=== PATIENT | male | born 1950 | race Caucasian/White ===

== ENCOUNTER → 2017-11-26 | Outpatient (CLI) | payer BC ==
[~2017-11-26] MED LIST: GLCSUNK; MULT-506 PO
--- NOTE | 2017-11-26 10:57 | DIAGNOSTIC IMAGING REPORT ---
CT LUNG SCREENING, LOW DOSE WITH COMPUTER-AIDED DETECTION (CAD) CLINICAL HISTORY: Smoking history. COMPARISON STUDY: No previous studies for comparison. CT DOSE: 105.33 mGy.cm TECHNIQUE: Low-dose helical CT was acquired without intravenous contrast from lung apices to bases and reconstructed at 2.5 mm every 2 mm. CAD was utilized for this study. A dose lowering technique was utilized adhering to the principles of ALARA. FINDINGS: Mild emphysema. No pleural effusions. No pneumothorax. Faint groundglass density seen within the lungs posteriorly, right greater than left. This favors mild dependent change. Subtle groundglass subpleural nodularity within the left upper lobe. This may be due to chronic interstitial change. The central airways are patent. No fractures within the visualized osseous structures. Slightly dense substernal 12 mm nodule. 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 Otherwise, no significant mediastinal or hilar lymphadenopathy. Mild calcified plaque at the aortic arch and within the coronary arteries. The heart is top normal in size. The visualized liver, spleen, and adrenal glands are unremarkable. Nodule 1 Category: 2 Nodule 1 Status: Baseline Nodule 1 Description: Solid Nodule 1 Lesion ID: 2 Nodule 1 Slice Number: 91 Nodule 1 Volume (mm3): 95 Nodule 1 Major Gallina mm: 7.7 Nodule 1 Minor Gallina mm: 3.2 Nodule 2 Category: 2 Nodule 2 Status: Baseline Nodule 2 Description: Solid Nodule 2 Lesion ID: 1 Nodule 2 Slice Number: 120 Nodule 2 Volume (mm3): 32 Nodule 2 Major Gallina mm: 3.9 Nodule 2 Minor Gallina mm: 3.2 IMPRESSION: 1. A total of 2 subcentimeter nodules with recommendations detailed below. 2. Mild emphysema. 3. Mild calcified plaque within the coronary arteries. 4. Slightly hyperdense 12 mm substernal nodule. 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 CAD FINDINGS: Overall Lung RADS Category: 2 Lung RADS Management Recommendation: Continue annual lung cancer screening. Lung RADS Follow Up Date: 2018-11-26 Lung RADS Nodule ID: 2 Electronically signed by: Roberto Scott M.D. 11/26/2017 10:55 AM Dictated Date/Time: 11/26/2017 10:44 AM
== END | disposition home or self-care (01) ==
LOC: C.CTS 09:21
PROVIDERS: ATTEND Family Medicine
DX: Z87.891 Personal history of nicotine dependence (principal)

== ENCOUNTER → 2017-11-28 | Outpatient (CLI) | payer BC ==
--- NOTE | 2017-11-28 08:44 | DIAGNOSTIC IMAGING REPORT ---
ULTRASOUND EXAM AAA SCREEN CLINICAL HISTORY: 67 years-old Male presenting with NICOTINE DEPENDENCE. TECHNIQUE: Real-time grayscale and color and spectral Doppler ultrasound imaging of the abdominal aorta and iliac arteries was performed. COMPARISON: None. FINDINGS: Proximal aorta: Atherosclerosis. Transverse dimension 2.3 x 2.4 cm. Mid aorta: Atherosclerosis. Transverse dimension 3.1 x 3.1 cm. Distal aorta: Atherosclerosis. Transverse dimension 2.0 x 2.1 cm. Right iliac artery: Atherosclerosis. Transverse dimension 1.0 cm. Left iliac artery: Atherosclerosis. Transverse dimension 0.8 cm. IMPRESSION: 1. Atherosclerosis with a 3.1 cm mid abdominal aortic aneurysm. Further evaluation with CTA of the abdomen and pelvis to be considered as clinically indicated. The report will be called/faxed according to standard departmental protocol. Electronically signed by: Milton Osullivan M.D. 11/28/2017 8:43 AM Dictated Date/Time: 11/28/2017 8:42 AM
== END | disposition home or self-care (01) ==
LOC: C.ULTR 08:07
PROVIDERS: ATTEND Family Medicine
DX: F17.200 Nicotine dependence, unspecified, uncomplicated (principal); I71.4 Abdominal aortic aneurysm, without rupture

== ENCOUNTER → 2018-01-07 | Outpatient (CLI) | payer BC | END | disposition home or self-care (01) | LOC: C.PATHSPEC 17:13 | PROVIDERS: ATTEND Physician Assistant | DX: L57.0 Actinic keratosis (principal) ==

== ENCOUNTER 2022-10-24 07:14 | Inpatient (IN) ==
--- NOTE | 2022-10-10 08:51 | PAT Medication Instructions ---
Medication Instructions Date of Service October 10, 2022 Home Medications atorvastatin 20 mg tablet 20 mg PO HS bupropion HCl 100 mg tablet 100 mg PO BID lisinopril 20 mg tablet 20 mg PO HS melatonin 5 mg tablet 5 mg PO HS PRN Sleep aspirin 81 mg capsule 81 mg PO QAM ASK your prescriber and surgeon aspirin 81 mg capsule 81 mg PO QAM Take morning of surgery With a small sip of water, OTHERWISE NOTHING TO EAT OR DRINK AFTER MIDNIGHT: bupropion HCl 100 mg tablet 100 mg PO BID Take evening before surgery atorvastatin 20 mg tablet 20 mg PO HS bupropion HCl 100 mg tablet 100 mg PO BID lisinopril 20 mg tablet 20 mg PO HS melatonin 5 mg tablet 5 mg PO HS PRN Sleep (if needed) Other Notes If you have any questions please call us at [phone] or [phone] or [phone] or [phone]
--- NOTE | 2022-10-12 12:25 | Anesthesiology Consultation ---
Date of Service October 12, 2022 Assessment & Plan (1) Encounter for pre-operative examination: Chart Review Chart Review: Acceptable Risk for Surgery and Patient seen in Pre Admission Testing Per PAT appt on 10/12/22, patient denies any recent travel or large group activities. Pt is vaccinated for Covid. Will leave to surgeon's discretion if preop Covid testing needed. Educated on importance of using Covid precautions one week prior to surgery Teaching & Discussion Pre-Anesthesia Teaching/Discussion Notes: Instructed NPO after midnight before surgery,except medications with 15 cc of water. Medication instructions provided according to the PAT guidelines. History Surgery Operation Date: 10/24/22 11:20 Proposed Procedures p Percutaneous Endovascular Abdominal Aortic Aneurysm Repair - Branden Francois MD Height/Weight Height: 5 ft 10 in Weight: 88.1 kg Allergies Allergy/AdvReac Type Severity Reaction Status Date / Time No Known Allergies Allergy Mild Verified 10/09/22 15:17 Medications Home Medications Medication Instructions Recorded Confirmed Last Taken atorvastatin 20 mg tablet 20 mg PO HS 05/20/20 10/09/22 07/18/22 bupropion HCl 100 mg tablet 100 mg PO BID 05/20/20 10/09/22 07/18/22 lisinopril 20 mg tablet 20 mg PO HS 05/20/20 10/09/22 07/18/22 melatonin 5 mg tablet 5 mg PO HS PRN Sleep 07/14/22 10/09/22 07/18/22 aspirin 81 mg capsule 81 mg PO QAM 10/09/22 10/09/22 Unknown Past Medical History Medical History Abdominal aneurysm 4.9 cm x 4.7 cm per 10/02/22 aortic iliac duplex Anxiety Depression GERD (gastroesophageal reflux disease) infrequent, managed with OTC TUMS Hyperlipidemia Hypertension controlled, stable per pt Osteoarthritis Right knee pain Sciatica Right LE Exercise / Class Metabolic Activity II 4-5 Yardwork/Stairs/Walk up hill (one flight of stiars - no chest pain or SOB ) Past Family History Family History Grandmother Family history of diabetes mellitus Mother Family history of malignant neoplasm of skin Past Surgical History Surgical History History of appendectomy History of cataract surgery bilateral History of inguinal hernia repair 03/07/18 LMA#5. History of knee surgery right History of rotator cuff surgery right History of tonsillectomy History of tooth extraction Past Anesthesia History No Hx of Anesthesia Complications and No Family Hx of Anesthesia Complications History of PONV No Hx of PONV and No Hx of Motion Sickness Social History Smoking Status: Former smoker tobacco type: cigarettes Do You Dip or Chew Tobacco: No Smoking End Date: 2019 Hx Alcohol Use: No Hx Substance Use: No substance use type: does not use Review of Systems Snoring - no hx of sleep study Patient denies chest pain, shortness of breath, dyspnea on exertion, cough, wheezing, palpitations. No hx of seizures, stroke, VA. No hx of blood clots or blood transfusions Physical Exam Vital Signs VITALS BP 146/90 (manually- usually well controlled) P 74 TEMP 97.6 SP02 96% RESP 16 Constitutional no acute distress ENMT Mouth: no TMJ clicking Thyromental Distance: > or= 3.5 Finger Breadths (4.0) Mallampati Class: II Permanent bridge to bottom front and side teeth Caps to teeth Neck neck extension not limited Respiratory normal respiratory effort; no respiratory distress Auscultation: lungs clear to auscultation bilaterally; no wheezes Cardiovascular Rate/Rhythm: regular rate and regular rhythm Heart Sounds: no murmur Vessels: no carotid bruit Musculoskeletal Spine: no pain with cervical ROM Extremities: extremities normal to inspection Psychiatric Orientation: alert Lab Results Anesthesia Preop Results Results Anesthesia Widget: WBC 6.92 K/ul (4.8-10.8) 10/12/22 Hgb 15.5 g/dl (14.0-18.0) 10/12/22 Hct 44.4 % (42.0-52.0) 10/12/22 Plt 252 K/uL (130-400) 10/12/22 Na 134 mmol/L (136-145) L 10/12/22 K 4.7 mmol/L (3.5-5.1) 10/12/22 Cl 101 mmol/L (98-107) 10/12/22 CO2 29 mmol/L (21-32) 10/12/22 BUN 12 mg/dl (6-23) 10/12/22 Creat 0.92 mg/dl (0.6-1.4) 10/12/22 Glucose Level 113 mg/dl (70-99(Fasting)) H 10/12/22 PT 10.9 Seconds (9.0-12.0) 10/12/22 PTT 27.2 Seconds (21.0-31.0) 10/12/22 INR 1.0 (0.9-1.1) 10/12/22 Blood Type A Positive 10/12/22 Antibody Screen NEGATIVE 10/12/22 Testing Electrocardiogram Date: 10/12/22 Findings: + NSR @ (69bpm ) RBBB When compared to EKG from Aug 23, 2022- no significant change per cardio Chest X-Ray Date: 10/12/22 FINDINGS: PA and lateral chest radiographs are compared to study dated 02/10/2021 and correlated with chest CT dated 03/22/2022. The cardiomediastinal silhouette is unremarkable noting atherosclerotic calcification of the thoracic aorta. Mild emphysema and chronic interstitial thickening is similar to previous. There is bibasilar scarring/atelectasis. No airspace consolidation or pleural effusion is identified. There is no pneumothorax. A nipple shadow projects over the left lung base. The skeletal structures are osteopenic. The bony thorax appears intact. IMPRESSION: Mild emphysematous change with no active disease in the chest. Other Testing Chest CT 03/22/22= No suspicious pulmonary nodules COVID-19 Risk Screen Screening Information COVID-19 Screen Date: 10/12/22 Exposure 21 Days Family/Household +COVID Last 21 Days: No Exposure 10 Days Any COVID Exposure Last 10 Days: No Symptoms Last 10 Days Experienced COVID Sx Last 10 Days: No + COVID 0-90 Days COVID + in Last 0-90 Days: No Risk Plan COVID Risk Plan: No Risk Identified Patient Education COVID Preop Screening Education Complete: Yes
[~2022-10-24 07:14] MED LIST changes: -GLCSUNK; +LACTATED RINGER'S 1,000 ML IV SCH; -MULT-506 PO; +ceFAZolin 2000MG 2,000 MG/15 ML SYR IV SCH
--- NOTE | 2022-10-24 07:34 | History & Physical Report ---
Date of Service October 24, 2022 History of Present Illness Primary Care Provider: Justin Kaur DO Chief Complaint rm#[id number], here for f/u AAA, recently found to have mobile thrombus on duplex. Scheduled for TKA on Sunday with Dr. Brown. On asa 81 mg po bid. No claudication, some right hip discomfort that has been long standing per patient. Quit smoking this month History of Present Illness I had the pleasure of seeing Mohinder today for follow-up. As you know he is a 72-year-old gentleman who has abdominal aortic aneurysm which we have been following. He recently had an ultrasound which showed the aneurysm to have grown from 4.6 to 4.9 cm in size. It also showed a mobile flap within the aneurysm sac. Review of Systems 10 systems were reviewed and all were negative except for the HPI. Physical Exam Vitals & Measurements HR: 73 (Monitored) BP: 122/72 SpO2: 98% Input and Output - Last 24 hours (Last 8 hours) No I/O Data Found: On exam the patient is awake alert and oriented x3. His blood pressure is 124/74 in the left and 122/72 on the right. His radials and carotids are +2 bilaterally. His lungs were clear. In heart had a regular rate and rhythm. Abdominal exam shows mild dilatation of the abdominal aorta. Femorals are +2 bilaterally. Pedal pulses are +2 bilaterally. Neurologic exam is grossly intact. Assessment/Plan 1. Abdominal aortic aneurysm (AAA) >39 mm diameter At this point being that his aneurysm has enlarged 4.9 and he has a mobile flap which is worrisome for distal embolization we recommended a endovascular repair if he meets criteria by CT angio. We have ordered a CT angiogram. We will keep you informed as to his progress. He is going to put off his knee surgery till after this problem is resolved. Thank you very much for letting us participate in the care of this patient. Sincerely, Kym Francois MD Problem List/Past Medical History Ongoing Abdominal aortic aneurysm (AAA) >39 mm diameter Cessation of tobacco use in previous 12 months High blood cholesterol IFG (impaired fasting glucose) Tobacco user Weight monitoring Historical Post-viral cough syndrome Tick bite of forearm Procedure/Surgical History Cataract of right eye (08/16/2022) Low dose CT of chest without contrast (03/22/2022) CT of chest (02/10/2021) CT of lungs (02/10/2020) CT of lungs (11/19/2018) Lung cancer screening (11/19/2018) HERNIA REPAIR W/MESH (03/07/2018) Ultrasound exam AAA screen (11/28/2017) CT of lungs (11/26/2017) Surgery Surgery Medications Inpatient No active inpatient medications Home Aspir 81 oral delayed release tablet, 81 mg= 1 tab, PO, bid atorvastatin 20 mg oral tablet, See Instructions buPROPion 100 mg/12 hours (SR) oral tablet, extended release, See Instructions lisinopril 20 mg oral tablet, See Instructions Melatonin vitamin E Allergies NKA Social History Smoking Status Former Smoker, quit in last 30 days Tobacco - High Risk Current every day smoker, Cigarettes - Comments: Smokes 1 ppd for 45-50 years Family History Diabetes mellitus: Mother and Father. High blood pressure: Mother and Father. Parkinsons: Mother and Father. Immunizations Vaccine Date Status influenza virus vaccine, inactivated 08/17/2021 Given influenza virus vaccine, inactivated 06/16/2019 Given pneumococcal 23-valent vaccine 06/16/2019 Given pneumococcal 13-valent vaccine 06/28/2018 Given influenza virus vaccine, inactivated 06/28/2018 Given influenza virus vaccine, inactivated 09/29/2017 Recorded tetanus/diphtheria/pertuss, acel (Tdap) 09/14/2014 Recorded Comments : 2017-10-02: Historical information-source unspecified Signature Line Electronic Signature on File Branden Francois MD Author Signature Dt/Tm: 10/09/2022 02:33 PM Steel Crane Operator Wily Watson [facility] [place], [address] [place] [address] EJS Result Type: .Outpt Ltr Date of Service: October 09, 2022 14:32 EST Authorization Status: Final Subject: Consult Note Author or Import Date: MD Francois Eugene J on October 09, 2022 14:33 EST Verified By: MD Francois Eugene J on October 09, 2022 14:33 EST Encounter info: [id number], [facility], Clinic, 10/09/2022 - 10/09/2022 Allergies Allergy/AdvReac Type Severity Reaction Status Date / Time No Known Allergies Allergy Mild Verified 10/24/22 07:27 Home Medications Medication Instructions Recorded Confirmed Type atorvastatin 20 mg tablet 20 mg PO HS 05/20/20 10/24/22 History bupropion HCl 100 mg tablet 100 mg PO BID 05/20/20 10/24/22 History lisinopril 20 mg tablet 20 mg PO HS 05/20/20 10/24/22 History melatonin 5 mg tablet 5 mg PO HS PRN Sleep 07/14/22 10/24/22 History aspirin 81 mg capsule 81 mg PO QAM 10/09/22 10/24/22 History Past Med/Surg History Medical History Abdominal aneurysm 4.9 cm x 4.7 cm per 10/02/22 aortic iliac duplex Anxiety Depression GERD (gastroesophageal reflux disease) infrequent, managed with OTC TUMS Hyperlipidemia Hypertension controlled, stable per pt Osteoarthritis Right knee pain Sciatica Right LE Surgical History History of appendectomy History of cataract surgery bilateral History of inguinal hernia repair 03/07/18 LMA#5. History of knee surgery right History of rotator cuff surgery right History of tonsillectomy History of tooth extraction Family History Grandmother Family history of diabetes mellitus Mother Family history of malignant neoplasm of skin Social History Smoking Status: Former smoker Smoking End Date: 2019; Second Hand Exposure: No; Do You Dip or Chew Tobacco: No; Tobacco Cessation Education Requested by Patient: No Hx Alcohol Use: No Hx Substance Use: No Preferred Language: Occitan Communication Ability: Effective Private Advisor Required: No Beliefs That Will Affect Care: None Current Living Situation: Spouse Feels Safe at Home: Yes Safety Concerns: Feels Safe At This Time Assistive Devices: Glasses
--- NOTE | 2022-10-24 07:35 | History & Physical Bridge Note ---
Date of Service October 24, 2022 History & Physical Bridge Note I have examined the patient, reviewed the History & Physical and in the interval since the performance of the History & Physical I have noted the following changes of clinical significance: no changes noted
[2022-10-24] MEDS ORDERED: fentaNYL citrate 100 MCG/2 ML VIAL ONE (08:11)
[2022-10-24] MEDS ORDERED: PROPOFOL IV EMULSION 10 MG/ML 20 ML VIAL IV ONE (08:11)
[2022-10-24] MEDS ORDERED: MIDAZOLAM HCL 1 MG/ML 2ML VIAL ONE (08:11)
[2022-10-24] MEDS ORDERED: LIDOCAINE 2% MPF LOCAL 5 ML VIAL INFIL ONE (08:11)
[2022-10-24] MEDS ORDERED: fentaNYL citrate 100 MCG/2 ML VIAL IV PRN (09:02)
[2022-10-24] MEDS ORDERED: LABETALOL HCL IV 5 MG/ML 20ML IV PRN (09:02)
[2022-10-24] MEDS ORDERED: ATROPINE SULFATE 0.1 MG/ML 10ML SYR IV PRN (09:02)
[2022-10-24] MEDS ORDERED: ONDANSETRON INJ 2 MG/ML 2 ML VIAL IV PRN (09:02)
[2022-10-24] MEDS ORDERED: ONDANSETRON INJ 2 MG/ML 2 ML VIAL ONE (10:02)
[2022-10-24] MEDS ORDERED: ROCURONIUM BROMIDE 10 MG/ML 5 ML VIAL IV ONE (10:02)
[2022-10-24] MEDS ORDERED: DEXAMETHASONE SOD INJ 4 MG/ML VIAL ONE (10:02)
[2022-10-24] MEDS ORDERED: HEPARIN SOD (PORCINE) 1000 UNIT/ML ONE (10:03)
[2022-10-24] MEDS ORDERED: VISIPAQUE IV PRN (10:31)
[2022-10-24] MEDS ORDERED: GLYCOPYRROLATE 0.2 MG/ML VIAL ONE (10:32)
[2022-10-24] MEDS ORDERED: NEOSTIGMINE METHYLSULFATE 1 MG/ML 10ML VIAL ONE (10:32)
--- NOTE | 2022-10-24 10:55 | Procedure Note ---
Angiogram Post Procedure Fluoroscopy Time (minutes): 7.5 Radiation (mGy): 163 Contrast: 90 Post Operative Report Pre & Post Diagnosis Operation Date: 10/24/22 09:15 Pre-Op Diagnosis: Abdominal Aortic Aneurysm Post-Op Diagnosis: Abdominal Aortic Aneurysm I identified the patient and participated in the time-out.: Yes Procedure Operation Date: 10/24/22 09:15 Actual Procedures p Percutaneous Endovascular Aortic Aneurysm Repair, Mechanical Closure of Bilateral Femoral Arteries - Branden Francois MD Surgeon Branden Francois MD Biztalk Consultant none Estimated Blood Loss 30 Findings Consistent with Post-Op Diagnosis Specimens none Anesthesia Type General Complications none Disposition Accompanied Patient To Recovery: No Disposition: Recovery Room Indications This is a 72-year-old male with an enlarging abdominal aortic aneurysm. He was a candidate for endovascular repair. This was discussed with the patient and he agreed to go ahead with this procedure and understood the risks options and benefits. Description of Procedure The patient was brought to the OR and placed in supine position. Patient was intubated and general anesthesia was accomplished. A safety timeout was performed to identify patient's name, date of and the correct procedure. Abdomen and groins were prepped and draped in sterile fashion. Ultrasound guided percutaneous access of the right groin was performed. The right common femoral artery was patent. A percutaneous puncture was made in the right common femoral artery using ultrasound. The depth finder for the Manta device was used to measure the depth of the puncture. It was found to be 3 cm. The depth finder was removed and the 8 Turkmen sheath inserted. We turned our attention to the left side and we similarly accessed the left common femoral artery. The left common femoral artery was patent. Using ultrasound left common femoral artery was punctured. The depth finder was used to measure the depth of the puncture of the left side and also found to be 4 cm from the skin edge. This was removed and 8 Turkmen sheath was inserted. Patient was heparinized with 8000 of IV heparin. Through the right groin, we advanced a soft Glidewire followed by a Kumpe catheter. The wire then was exchanged for a stiff Maki wire. We then cannulated the aorta from the left side using 035 Glidewire and a Kumpe catheter. Once this was placed in the super renal aorta the wire was exchanged to a Maki wire.. We then upsized our access on the right side with a 14 Turkmen dilator and subsequently to 18 Turkmen dry seal sheath. The left groin sheath was then exchanged to a 12 Turkmen dry seal sheath. The sheaths were advanced all the way up in the aortic sac. A marker pig was inserted to the left groin. Aortography was performed. The level of the renal arteries were marked on the screen. This showed patency of both renal arteries and a acceptable neck for deployment of the graft. We advanced the device (Wiggins excluder conformable 36 mm x 14.5 mm x 14 cm) through the right sheath. The shaft of the graft was then deployed. An aortogram was performed. Both renal arteries were visualized just above the top of the deployed graft. Aortogram confirmed good location of the proximal end of the graft. The hooks were then deployed. Cannulation of the gate was then accomplished using an 035 glidewire and a [employer] catheter. The wire spun easily in the neck of the graft. The 035 Glidewire was removed and a Maki wire was reinserted. A marker pigtail was then inserted over the Guzman wire. The 12 Turkmen sheath was then pulled down into the external iliac and an arteriogram was performed of the left iliac system. This identified the origin of the hypogastric and the left side. We then removed the pigtail. We reinserted a 12 Turkmen sheath dilator and advanced the sheath into the gate of the graft. Prior to inserting the contralateral limb we deployed the ipsilateral limb to complete the deployment of the graft. The device was then removed from the right groin. We then inserted an 16mm x 14.5 mm x 12 contralateral limb. The 12 Turkmen sheath was then pulled down to below the level of the contralateral limb. Contralateral limb was then deployed without difficulty. The 18 Turkmen sheath on the right side was then pulled down into the pelvis. Hand-injection was then performed to jagdeep where the bifurcation of the common iliac artery was. We then chose a 16 x 14.5 x 10 contralateral limb to extend the right side limb. The graft was advanced to the 18 Turkmen sheath. It was deployed with the distal end falling just above the iliac bifurcation. The Q50 balloon was then inserted through the left sheath. The proximal attachment site, the gate and the distal attachment site were ballooned with the Q50 balloon. The balloon was then removed. Was inserted through the right side 18 Turkmen sheath and then dilated the overlap of the limbs and the distal attachment site of the right limb. The balloon was then removed. The pigtail was then inserted through the left side to above the renal arteries. A final arteriogram was then performed which showed no evidence of a type I or II endoleak. Graft showed no evidence of narrowing throughout. An 035 Glidewire was then reinserted into the pigtail and the pigtail removed. The 12 Turkmen sheath was then pulled and a 14 Turkmen Manta device was inserted. This was deployed without difficulty. No bleeding was noted after deployment. The right groin sheath was then also pulled. An 18 Turkmen Manta device was inserted and deployed. No evidence of bleeding was seen on the right side either. Sterile dressings were applied to the wounds.The patient left the operation room in satisfactory condition and tolerated the procedure well. All needle and sponge counts were correct at the end of the procedure. I attest to the content of the Intraoperative Record and any orders documented therein. Any exceptions are noted below.
--- NOTE | 2022-10-24 11:09 | Anesthesiology Progress Note ---
Date of Service October 24, 2022 Anesthesia Post Procedure Vital Signs Vital Signs: Temp Pulse Resp BP BP Pulse Ox O2 Del Method 10/24/22 11:00 76 16 146/88 H 100 Oxymask 10/24/22 10:50 36.2 C L 77 16 153/89 H 96 Oxymask 10/24/22 07:28 36.6 C 83 16 151/96 H 138/86 96 Room Air O2 Flow Rate 10/24/22 11:00 5 10/24/22 10:50 5 10/24/22 07:28 Transfer of Care Handoff Completed per policy Notes Mental Status: alert / awake / arousable Patient Amnestic to Procedure: Yes Nausea / Vomiting: adequately controlled Pain: adequately controlled Airway Patency, RR, SpO2: stable & adequate BP & HR: stable & adequate Hydration State: stable & adequate Anesthetic Complications: no major complications apparent
[2022-10-24 11:10] LABS: Hematocrit (blood only) 38.2 % (42.0-52.0); Hemoglobin 13.3 g/dl (14.0-18.0)
[2022-10-24] MEDS ORDERED: D5W AND 1/2NSS 1,000 ML IV SCH (12:00)
[2022-10-24] MEDS ORDERED: MELATONIN 3 MG TAB PO PRN (12:05)
--- NOTE | 2022-10-24 13:03 | Critical Care Consultation ---
Date of Consultation October 24, 2022 Assessment & Plan (1) Abdominal aneurysm: (2) Hyperlipidemia: (3) Hypertension: Plan Impression: 72-year-old male status post endovascular repair of an aortic aneurysm today. He is doing well postoperatively in the ICU. Recommendations: 1. Post P EVAR: Management per vascular surgery. 2. Hypertension: Blood pressure goals per vascular surgery service. He can continue the patient's outpatient lisinopril which she typically takes at night. 3. Hyperlipidemia: Continue the patient's atorvastatin. 4. History of tobacco abuse: No signs of exacerbation. No requirement for supplemental oxygen. Continue pulmonary toilet. Will increase activity as tolerated per vascular surgery. 5. The patient's remaining critical care issues have been well addressed by the vascular surgery service. We will continue to follow during his ICU stay. Feel free to contact us with questions or concerns in the interim. History of Present Illness Attending Physician: Branden Francois MD History of Present Illness Asked by vascular surgery to assist in critical care management of this patient status post PEVAR. History is obtained from discussion with the patient and his at bedside and reviewed electronic medical record. The patient is a 72-year-old male with a history of ongoing tobacco abuse and hypertension. He was found to have an abdominal aneurysm and has been following with vascular surgery with screening ultrasounds. The most recent scan showed a mobile flap as well as slight increase in the size of the aneurysm. He was taken to the OR today for percutaneous endovascular repair of the aneurysm. This was completed without difficulty and the patient's return to the ICU postoperatively with an arterial line in place. He is awake alert and conversant. He denies any significant abdominal pain. He has some slight discomfort at the surgical incision sites. He is not having any neurological complaints. He just ate some lunch and is not having any abdominal pain nausea or vomiting. He is mildly hypertensive. He denies any chest pain palpitations or significant lower extremity edema. No neurological complaints. Allergies Allergy/AdvReac Type Severity Reaction Status Date / Time No Known Allergies Allergy Mild Verified 10/24/22 07:27 Home Medications Medication Instructions Recorded Confirmed Type atorvastatin 20 mg tablet 20 mg PO HS 05/20/20 10/24/22 History bupropion HCl 100 mg tablet 100 mg PO BID 05/20/20 10/24/22 History lisinopril 20 mg tablet 20 mg PO HS 05/20/20 10/24/22 History melatonin 5 mg tablet 5 mg PO HS PRN Sleep 07/14/22 10/24/22 History aspirin 81 mg capsule 81 mg PO QAM 10/09/22 10/24/22 History Patient History Medical History (Updated 10/24/22 @ 13:07 by Rakesh Damon MD) Abdominal aneurysm 4.9 cm x 4.7 cm per 10/02/22 aortic iliac duplex Anxiety Depression GERD (gastroesophageal reflux disease) infrequent, managed with OTC TUMS Hyperlipidemia Hypertension controlled, stable per pt Osteoarthritis Right knee pain Sciatica Right LE Surgical History History of appendectomy History of cataract surgery bilateral History of inguinal hernia repair 03/07/18 LMA#5. 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 Beliefs That Will Affect Care: None Current Living Situation: Spouse Feels Safe at Home: Yes Safety Concerns: Feels Safe At This Time Assistive Devices: Glasses Review of Systems Review of Systems: All systems reviewed & are unremarkable except as noted in Subjective Physical Exam Constitutional: WD/WN, vitals as above Neck: trachea midline, no thyromegaly Respiratory: normal respiratory effort, lungs clear to auscultation Cardiovascular: RRR, no murmur, no edema Gastrointestinal (Abdomen): normal bowel sounds, soft, nontender, no hepatosplenomegaly Musculoskeletal: Extremities: extremities normal to inspection Skin: no rashes, warm and dry Neurologic: Nonfocal exam Lymphatic: no cervical lymphadenopathy Results & Data Results & Data ([facility]) Vital Signs (Past 12 Hours) Vital Signs Temp Pulse Pulse Resp BP BP BP 10/24/22 12:30 85 15 175/95 H 10/24/22 12:15 75 14 166/91 H 10/24/22 12:00 70 19 171/97 H 10/24/22 11:25 73 20 155/58 H 10/24/22 11:20 36.9 C 10/24/22 11:10 36.4 C L 72 16 140/81 10/24/22 11:00 76 16 146/88 H 10/24/22 10:50 36.2 C L 77 16 153/89 H 10/24/22 07:28 36.6 C 83 16 151/96 H 138/86 Pulse Ox O2 Del Method O2 Flow Rate 10/24/22 12:30 96 Room Air 10/24/22 12:15 96 Room Air 10/24/22 12:00 96 Room Air 10/24/22 11:25 96 Room Air 10/24/22 11:20 10/24/22 11:10 98 Room Air 10/24/22 11:00 100 Oxymask 5 10/24/22 10:50 96 Oxymask 5 10/24/22 07:28 96 Room Air Critical Care Results & Data Vital Signs (Past 12 Hours) Vital Signs Temp Pulse Pulse Resp BP BP BP 10/24/22 12:30 85 15 175/95 H 10/24/22 12:15 75 14 166/91 H 10/24/22 12:00 70 19 171/97 H 10/24/22 11:25 73 20 155/58 H 10/24/22 11:20 36.9 C 10/24/22 11:10 36.4 C L 72 16 140/81 10/24/22 11:00 76 16 146/88 H 10/24/22 10:50 36.2 C L 77 16 153/89 H 10/24/22 07:28 36.6 C 83 16 151/96 H 138/86 Pulse Ox O2 Del Method O2 Flow Rate 10/24/22 12:30 96 Room Air 10/24/22 12:15 96 Room Air 10/24/22 12:00 96 Room Air 10/24/22 11:25 96 Room Air 10/24/22 11:20 10/24/22 11:10 98 Room Air 10/24/22 11:00 100 Oxymask 5 10/24/22 10:50 96 Oxymask 5 10/24/22 07:28 96 Room Air Lab & Micro Results (Past 24 Hours) Hgb 13.3 g/dl (14.0-18.0) L 10/24/22 Hct 38.2 % (42.0-52.0) L 10/24/22 No Data to Display No Data to Display I & O Totals 24 Hours 10/23/22 10/24/22 10/25/22 06:59 06:59 06:59 Intake Total 1000 / 1000 Output Total 330 / 330 Balance 670 / 670 Cumulative 10/09/22 14:25 thru 10/24/22 11:10 Intake Total 1000 Output Total 330 Balance 670 RT Ventilator Mngmt (Last Documented) Ventilator Ordered Settings Respiratory Rate 15 10/24/22 12:30 Ventilator - PT Measurements Respiratory Rate 15 Coding Level of Care Code INP/OBS CONSULT LVL 3, 45 MIN Diagnoses Abdominal aneurysm I71.40 Hyperlipidemia E78.5 Hypertension I10
[2022-10-24] MEDS: oxyCODONE/ACETAMINOPHEN 5mg/325mg TAB PO PRN ×2 (16:00→20:29)
[2022-10-24] MEDS: ceFAZolin 2000MG 2,000 MG/15 ML SYR IV SCH ×2 (16:22→23:13)
[2022-10-24] MEDS: buPROPion HCl 100 MG TABLET PO SCH (20:26)
[2022-10-24] MEDS ORDERED: ATORVASTATIN 20 MG TAB PO SCH (21:00)
[2022-10-24] MEDS ORDERED: lisinopril 20 MG TAB PO SCH (21:00)
[2022-10-24] MEDS ORDERED: CALCIUM CARBONATE 500 MG CHEWABLE TAB PO PRN (23:51)
[2022-10-25 04:49] LABS: Basophils # (auto) 0.04 K/uL (0-0.2); Basophils % (auto) 0.3 %; Eosinophils # (auto) 0.03 K/uL (0-0.50); Eosinophils % (auto) 0.2 %; Hemoglobin 13.5 g/dl (14.0-18.0); Immature Granulocytes # (auto) 0.04 K/uL (0.01-0.20); Immature Granulocytes % (auto) 0.3 %; Lymphocytes # (auto) 1.67 K/uL (1.2-3.4); Lymphocytes % (auto) 12.4 %; Mean Corpuscular Hemoglobin 32.6 pg (25.0-34.0); Mean Corpuscular Hgb Conc 35.5 g/dL (32.0-36.0); Mean Corpuscular Volume 91.8 fL (80.0-100.0); Mean Platelet Volume 9.6 fL (9.4-12.4); Monocytes # (auto) 0.96 K/uL (0.11-0.59); Monocytes % (auto) 7.1 %; Neutrophils # (auto) 10.76 K/uL (1.40-6.50); Neutrophils % (auto) 79.7 %; Platelet Count 226 K/uL (130-400); RDW Coefficient of Variation 13.1 % (11.5-14.5); RDW Standard Deviation 43.8 fL (36.4-46.3); Red Blood Count 4.14 M/uL (4.70-6.10)
[2022-10-25 05:09] LABS: BUN Creatinine Ratio 14.1 (10-20); Calcium 8.6 mg/dl (8.5-10.1); Creatinine Clr Calc Pharmacy 83.5 ml/min; Est GFR (African American) 102.3 ml/min; Est GFR (Non-African American) 88.3 ml/min; Potassium 4.1 mmol/L (3.5-5.1)
[2022-10-25] MEDS: oxyCODONE/ACETAMINOPHEN 5mg/325mg TAB PO PRN (05:52)
[2022-10-25] MEDS: buPROPion HCl 100 MG TABLET PO SCH (07:32)
--- NOTE | 2022-10-25 08:33 | Critical Care Progress Note ---
Date of Service October 25, 2022 Assessment & Plan (1) Abdominal aneurysm: (2) Hyperlipidemia: (3) Hypertension: (4) Hyponatremia: Plan Impression: 72-year-old male postop day 1 endovascular repair of an aortic aneurysm today. He experienced what appears to be a vagal episode this morning in association with removal of his Arvizu catheter and arterial lines. Symptoms have resolved. Recommendations: 1. Post PEVAR: Management per vascular surgery. 2. Hypertension: Continue home antihypertensive 3. Hyperlipidemia: Continue the patient's atorvastatin. 4. History of tobacco abuse: No signs of exacerbation. No requirement for supplemental oxygen. Continue pulmonary toilet. Will increase activity as tolerated per vascular surgery. 5. Vagal episode this morning. We will continue to monitor at this point in time although it appears to have resolved without sequelae. 6. Mild hyponatremia: Would continue to trend at this point time. Volume status appears euvolemic. Follow-up BMP in a.m. Disposition per vascular surgery service. Patient's critical care issues appear to have resolved. Critical care services will sign off. Feel free to contact us if we can be of additional assistance. Admission and Anticipated Discharge Date Admission Date: October 24, 2022 Subjective Patient seen and examined. EMR reviewed. Discussed with critical care nurse at bedside. The patient did well overnight. His blood pressure remained well controlled. He was having his Arvizu catheter and arterial line removed this morning when he developed diaphoresis and transient low blood pressure. This may have been a vagal response. He is returned back to bed and is asymptomatic currently with resolution of his vital sign abnormalities. He denies chest pain abdominal pain or any new neurological symptoms. Review of Systems Review of Systems: All systems reviewed & are unremarkable except as noted in Subjective Physical Exam Constitutional: WD/WN, vitals as above Neck: trachea midline, no thyromegaly Respiratory: normal respiratory effort, lungs clear to auscultation Cardiovascular: RRR, no murmur, no edema Gastrointestinal (Abdomen): normal bowel sounds, soft, nontender, no hepatosplenomegaly Musculoskeletal: Extremities: extremities normal to inspection Skin: no rashes, warm and dry Lymphatic: no cervical lymphadenopathy Results & Data Results & Data ([facility]) Vital Signs (Past 12 Hours) Vital Signs Temp Pulse Resp BP Pulse Ox O2 Del Method 10/25/22 06:00 89 19 93 Room Air 10/25/22 06:00 148/92 H 10/25/22 05:30 123/79 10/25/22 05:30 83 18 95 10/25/22 05:00 85 19 94 10/25/22 05:00 130/86 10/25/22 05:00 130/86 10/25/22 04:30 116/87 10/25/22 04:30 90 19 95 10/25/22 04:00 88 14 95 10/25/22 04:00 133/85 10/25/22 03:30 131/83 10/25/22 03:30 87 17 95 10/25/22 03:00 94 H 15 96 10/25/22 03:00 124/82 10/25/22 02:30 113/77 10/25/22 02:30 87 15 96 10/25/22 02:00 90 18 94 10/25/22 02:00 105/68 10/25/22 01:30 109/72 10/25/22 01:30 93 H 15 94 10/25/22 01:00 95 H 19 95 10/25/22 01:00 139/80 10/25/22 00:30 129/84 10/25/22 00:30 91 H 16 95 10/25/22 00:00 93 H 22 94 10/25/22 00:00 134/81 10/24/22 23:30 133/83 10/24/22 23:30 91 H 19 95 10/24/22 23:00 87 17 95 10/24/22 23:00 138/85 10/24/22 22:30 130/81 10/24/22 22:30 88 18 95 10/24/22 22:00 95 H 18 96 10/24/22 22:00 127/83 10/25/22 00:00 86 10/24/22 23:19 37.0 C 10/24/22 23:17 36.7 C 10/24/22 21:30 118/75 10/24/22 21:30 86 17 95 10/24/22 21:00 87 18 94 Room Air 10/24/22 21:00 115/73 Critical Care Results & Data Vital Signs (Past 12 Hours) Vital Signs Temp Pulse Resp BP Pulse Ox O2 Del Method 10/25/22 06:00 89 19 93 Room Air 10/25/22 06:00 148/92 H 10/25/22 05:30 123/79 10/25/22 05:30 83 18 95 10/25/22 05:00 85 19 94 10/25/22 05:00 130/86 10/25/22 05:00 130/86 10/25/22 04:30 116/87 10/25/22 04:30 90 19 95 10/25/22 04:00 88 14 95 10/25/22 04:00 133/85 10/25/22 03:30 131/83 10/25/22 03:30 87 17 95 10/25/22 03:00 94 H 15 96 10/25/22 03:00 124/82 10/25/22 02:30 113/77 10/25/22 02:30 87 15 96 10/25/22 02:00 90 18 94 10/25/22 02:00 105/68 10/25/22 01:30 109/72 10/25/22 01:30 93 H 15 94 10/25/22 01:00 95 H 19 95 10/25/22 01:00 139/80 10/25/22 00:30 129/84 10/25/22 00:30 91 H 16 95 10/25/22 00:00 93 H 22 94 10/25/22 00:00 134/81 10/24/22 23:30 133/83 10/24/22 23:30 91 H 19 95 10/24/22 23:00 87 17 95 10/24/22 23:00 138/85 10/24/22 22:30 130/81 10/24/22 22:30 88 18 95 10/24/22 22:00 95 H 18 96 10/24/22 22:00 127/83 10/25/22 00:00 86 10/24/22 23:19 37.0 C 10/24/22 23:17 36.7 C 10/24/22 21:30 118/75 10/24/22 21:30 86 17 95 10/24/22 21:00 87 18 94 Room Air 10/24/22 21:00 115/73 Lab & Micro Results (Past 24 Hours) RBC 4.14 M/uL (4.70-6.10) L 10/25/22 WBC 13.50 K/ul (4.8-10.8) H 10/25/22 Hgb 13.5 g/dl (14.0-18.0) L 10/25/22 Hct 38.0 % (42.0-52.0) L 10/25/22 MCV 91.8 fL (80.0-100.0) 10/25/22 MCH 32.6 pg (25.0-34.0) 10/25/22 MCHC 35.5 g/dL (32.0-36.0) 10/25/22 RDW Standard Deviation 43.8 fL (36.4-46.3) 10/25/22 RDW Coefficient of Variation 13.1 % (11.5-14.5) 10/25/22 Plt Count 226 K/uL (130-400) 10/25/22 MPV 9.6 fL (9.4-12.4) 10/25/22 Neutrophils (%) (Auto) 79.7 % 10/25/22 Lymphocytes (%) (Auto) 12.4 % 10/25/22 Monocytes # (Auto) 0.96 K/uL (0.11-0.59) H 10/25/22 Eosinophils # (Auto) 0.03 K/uL (0-0.50) 10/25/22 Immature Granulocyte % (Auto) 0.3 % 10/25/22 Neutrophils # (Auto) 10.76 K/uL (1.40-6.50) H 10/25/22 Lymphocytes # (Auto) 1.67 K/uL (1.2-3.4) 10/25/22 Monocytes # (Auto) 0.96 K/uL (0.11-0.59) H 10/25/22 Eosinophils # (Auto) 0.03 K/uL (0-0.50) 10/25/22 Basophils # (Auto) 0.04 K/uL (0-0.2) 10/25/22 Immature Granulocyte # (Auto) 0.04 K/uL (0.01-0.20) 3 Na 132 mmol/L (136-145) L 10/25/22 K 4.1 mmol/L (3.5-5.1) 10/25/22 Cl 101 mmol/L (98-107) 10/25/22 CO2 26 mmol/L (21-32) 10/25/22 Anion Gap 5 (3-11) 10/25/22 BUN 12 mg/dl (6-23) 10/25/22 Creatinine 0.85 mg/dl (0.6-1.4) 10/25/22 Estimated GFR ( Amer) 102.3 ml/min 10/25/22 Estimated GFR (Non-Af Amer) 88.3 ml/min 10/25/22 BUN/Creatinine Ratio 14.1 (10-20) 10/25/22 Glu 107 mg/dl (70-99(Fasting)) H 10/25/22 Ca 8.6 mg/dl (8.5-10.1) 10/25/22 Calcium Level 8.6 mg/dl (8.5-10.1) 10/25/22 04:16 I & O Totals 24 Hours 10/24/22 10/25/22 10/26/22 06:59 06:59 06:59 Intake Total 1287.5 / 1287.5 Output Total 2275 / 2275 Balance -987.5 / -987.5 Cumulative 10/09/22 14:25 thru 10/25/22 05:56 Intake Total 1287.5 Output Total 2275 Balance -987.5 RT Ventilator Mngmt (Last Documented) Ventilator Ordered Settings Respiratory Rate 19 10/25/22 06:00 Ventilator - PT Measurements Respiratory Rate 19 Coding Level of Care Code 89626 SUB INP/OBS CARE 2/35MIN Diagnoses Abdominal aneurysm I71.40 Hyperlipidemia E78.5 Hypertension I10 Hyponatremia E87.1
[2022-10-25] MEDS ORDERED: ASPIRIN 81 MG ECTAB PO SCH (09:00)
--- NOTE | 2022-10-25 11:57 | Surgery Progress Note ---
Date of Service October 25, 2022 Assessment & Plan (1) Status post endovascular aneurysm repair: Plan: Doing well post op. Will get him up in a chair and ambulate. If tolerates it well and he spontaneously voids can D/C today. Admission and Anticipated Discharge Date Admission Date: October 24, 2022 Subjective No complaints at present. Had an episode of hypotension and sweating when he got up to a chair for the first time today immediately after his lin and art line were pulled. Placed back in bed and returned to normal. No chest pain or irregular heart rate or slow heart rate. Physical Exam Constitutional: WD/WN, vitals as above Respiratory: normal respiratory effort; no respiratory distress Auscultation: lungs clear to auscultation bilaterally Cardiovascular: Rate/Rhythm: regular rate and regular rhythm Vessels: femoral pulses present Extremities: normal capillary refill Gastrointestinal (Abdomen): Inspection/Auscultation: abdomen normal to inspection and + abdomen distended Percussion/Palpation: abdomen soft; abdomen nontender Musculoskeletal: no cyanosis or clubbing, extremities motor strength 5/5 Skin: + incision (no hematomas present.) Neurologic: CN's II-XI intact bilaterally and moves all extremities Psychiatric: Orientation: alert and oriented x 3 Results & Data ([facility]) Vital Signs (Past 12 Hours) Vital Signs Pulse Resp BP Pulse Ox O2 Del Method 10/25/22 09:30 121/78 10/25/22 09:30 79 17 96 10/25/22 09:15 77 17 96 10/25/22 09:15 112/77 10/25/22 09:15 112/77 10/25/22 09:00 79 19 95 10/25/22 09:00 111/76 10/25/22 08:45 76 17 94 10/25/22 08:45 102/71 10/25/22 08:30 74 22 93 10/25/22 08:30 105/73 10/25/22 08:16 92 H 19 93 10/25/22 08:16 103/67 10/25/22 08:00 75 14 93 10/25/22 08:00 102/73 10/25/22 07:57 99/70 L 10/25/22 07:57 75 28 H 92 10/25/22 07:53 77 28 H 94 10/25/22 07:53 65/48 L 10/25/22 07:31 102 H 19 93 10/25/22 07:31 107/72 10/25/22 07:01 98 H 20 93 10/25/22 07:01 120/80 10/25/22 07:00 91 H 19 93 10/25/22 06:45 89 15 94 10/25/22 08:00 89 10/25/22 06:00 89 19 93 Room Air 10/25/22 06:00 148/92 H 10/25/22 05:30 123/79 10/25/22 05:30 83 18 95 10/25/22 05:00 85 19 94 10/25/22 05:00 130/86 10/25/22 05:00 130/86 10/25/22 04:30 116/87 10/25/22 04:30 90 19 95 10/25/22 04:00 88 14 95 10/25/22 04:00 133/85 10/25/22 03:30 131/83 10/25/22 03:30 87 17 95 10/25/22 03:00 94 H 15 96 10/25/22 03:00 124/82 10/25/22 02:30 113/77 10/25/22 02:30 87 15 96 10/25/22 02:00 90 18 94 10/25/22 02:00 105/68 10/25/22 01:30 109/72 10/25/22 01:30 93 H 15 94 10/25/22 01:00 95 H 19 95 10/25/22 01:00 139/80 10/25/22 00:30 129/84 10/25/22 00:30 91 H 16 95 10/25/22 00:00 93 H 22 94 10/25/22 00:00 134/81 10/25/22 00:00 86
--- NOTE | 2022-10-25 12:02 | Discharge Summary ---
Date of Service October 25, 2022 Admission HPI Per Admitting Provider Chief Complaint rm#[id number], here for f/u AAA, recently found to have mobile thrombus on duplex. Scheduled for TKA on Sunday with Dr. Brown. On asa 81 mg po bid. No claudication, some right hip discomfort that has been long standing per patient. Quit smoking this month History of Present Illness I had the pleasure of seeing Mohinder today for follow-up. As you know he is a 72-year-old gentleman who has abdominal aortic aneurysm which we have been following. He recently had an ultrasound which showed the aneurysm to have grown from 4.6 to 4.9 cm in size. It also showed a mobile flap within the aneu rysm sac. Review of Systems 10 systems were reviewed and all were negative except for the HPI. Physical Exam Vitals & Measurements HR: 73 (Monitored) BP: 122/72 SpO2: 98% Input and Output - Last 24 hours (Last 8 hours) No I/O Data Found: On exam the patient is awake alert and oriented x3. His blood pressure is 124/74 in the left and 122/72 on the right. His radials and carotids are +2 bilaterally. His lungs were clear. In heart had a regular rate and rhythm. Abdominal exam shows mild dilatation of the abdominal aorta. Femorals are +2 bilaterally. Pedal pulses are +2 bilaterally. Neurologic exam is grossly intact. Assessment/Plan 1. Abdominal aortic aneurysm (AAA) >39 mm diameter At this point being that his aneurysm has enlarged 4.9 and he has a mobile flap which is worrisome for distal embolization we recommended a endovascular repair if he meets criteria by CT angio. We have ordered a CT angiogram. We will keep you informed as to his progress. He is going to put off his knee surgery till after this problem is resolved. Thank you very much for letting us participate in the care of this patient. Sincerely, Kym Francois MD Problem List/Past Medical History Ongoing Abdominal aortic aneurysm (AAA) >39 mm diameter Cessation of tobacco use in previous 12 months High blood cholesterol IFG (impaired fasting glucose) Tobacco user Weight monitoring Historical Post-viral cough syndrome Tick bite of forearm Procedure/Surgical History Cataract of right eye (08/16/2022) Low dose CT of chest without contrast (03/22/2022) CT of chest (02/10/2021) CT of lungs (02/10/2020) CT of lungs (11/19/2018) Lung cancer screening (11/19/2018) HERNIA REPAIR W/MESH (03/07/2018) Ultrasound exam AAA screen (11/28/2017) CT of lungs (11/26/2017) Surgery Surgery Medications Inpatient No active inpatient medications Home Aspir 81 oral delayed release tablet, 81 mg= 1 tab, PO, bid atorvastatin 20 mg oral tablet, See Instructions buPROPion 100 mg/12 hours (SR) oral tablet, extended release, See Instructions lisinopril 20 mg oral tablet, See Instructions Melatonin vitamin E Allergies NKA Social History Smoking Status Former Smoker, quit in last 30 days Tobacco - High Risk Current every day smoker, Cigarettes - Comments: Smokes 1 ppd for 45-50 years Family History Diabetes mellitus: Mother and Father. High blood pressure: Mother and Father. Parkinsons: Mother and Father. Immunizations Vaccine Date Status influenza virus vaccine, inactivated 08/17/2021 Given influenza virus vaccine, inactivated 06/16/2019 Given pneumococcal 23-valent vaccine 06/16/2019 Given pneumococcal 13-valent vaccine 06/28/2018 Given influenza virus vaccine, inactivated 06/28/2018 Given influenza virus vaccine, inactivated 09/29/2017 Recorded tetanus/diphtheria/pertuss, acel (Tdap) 09/14/2014 Recorded Comments : 2017-10-02: Historical information-source unspecified Signature Line Electronic Signature on File Branden Francois MD Author Signature Dt/Tm: 10/09/2022 02:33 PM Licensing Coordinator Wily Watson [facility], [address] [place] [address] EJS Result Type: .Outpt Ltr Date of Service: October 09, 2022 14:32 EST Authorization Status: Final Subject: Consult Note Author or Import Date: MD Francois Eugene J on October 09, 2022 14:33 EST Verified By: MD Francois Eugene J on October 09, 2022 14:33 EST Encounter info: [id number], [facility], Clinic, 10/09/2022 - 10/09/2022 Admission Exam Per Admitting Provider On exam the patient is awake alert and oriented x3. His blood pressure is 124/74 in the left and 122/72 on the right. His radials and carotids are +2 bilaterally. His lungs were clear. In heart had a regular rate and rhythm. Abdominal exam shows mild dilatation of the abdominal aorta. Femorals are +2 bilaterally. Pedal pulses are +2 bilaterally. Neurologic exam is grossly intact. Principal Diagnosis Abdominal aortic aneurysm Discharge Exam Constitutional WD/WN, vitals as above Respiratory normal respiratory effort; no respiratory distress Auscultation: lungs clear to auscultation bilaterally Cardiovascular Rate/Rhythm: regular rate and regular rhythm Vessels: femoral pulses present Extremities: normal capillary refill Gastrointestinal (Abdomen) Inspection/Auscultation: abdomen normal to inspection and + abdomen distended Percussion/Palpation: abdomen soft; abdomen nontender Musculoskeletal no cyanosis or clubbing, extremities motor strength 5/5 Skin + incision (no hematomas present.) Neurologic CN's II-XI intact bilaterally and moves all extremities Psychiatric Orientation: alert and oriented x 3 Discharge Data Allergies Allergy/AdvReac Type Severity Reaction Status Date / Time No Known Allergies Allergy Mild Verified 10/24/22 07:27 Consultations 10/24/22 11:54 Consult Pricing Lead Routine Procedures Performed Operation Date: 10/24/22 09:15 Actual Procedures p Percutaneous Endovascular Aortic Aneurysm Repair, Mechanical Closure of Bilateral Femoral Arteries - Branden Francois MD Ordered Studies 10/24/22 07:10 EV aorto bi iliac repair Routine US EV guide vascular access Routine Hospital Course (1) Status post endovascular aneurysm repair: Doing well post op. Will get him up in a chair and ambulate. If tolerates it well and he spontaneously voids can D/C today. Total Time Total Time Spent Total Time Spent (In Minutes): 0 Discharge Plan Discharge Items Patient Disposition: Home - Self-Care Reason For Visit: Abdominal Aortic Aneurysm Discharge Diagnosis: Post endovascular aortic aneurysm repair Activity: Per Instructions section Non-emergency contact: Surgeon Call non-emergency contact if: your temperature is above 101.5, your wound has increased redness, your wound has increased drainage and your wound pain has increased Follow-up/Referrals: Justin Kaur DO [Primary Care Provider] - Diet: Heart Healthy Addtl Attending Provider Instructions: SPECIAL CARE INSTRUCTIONS: Medications: * Continue to take your medications as directed. Incision/Puncture Site Care: * You will have an incision or puncture in each of your groins. Liquid glue will be used to seal your incisions/puncture site. This will lift off as the incisions/puncture sites heal. * If Liquid glue is not used, there will be small dressings covering your incisions. After you get home, you may remove the dressings and shower - allowing the warm soapy water to run over it. * Be sure to dry the sites well and keep them dry. * DO NOT SOAK IN A TUB/POOL/etc. UNTIL ALL SURGICAL SITES ARE HEALED. DO NOT REMOVE THE GLUE UNTIL THE INCISIONS HEAL. Restrictions: * Limit yourself to water conservation specialist activity for the first week. * You may walk and go up and down steps. * Avoid excessive bending or movement at the level of the incisions or punctures. Risks and Possible Complications: * Infection/Drainage/Bleeding - Drainage or bleeding from the incisions/puncture site should be minimal. If you have excessive bleeding or drainage, call our office ([phone]) right away. * Pain/Numbness - You may experience some mild pain or soreness at your incision sites. You may also have some numbness around the incisions or into the insides of your thighs. Bruising is normal and should resolve within 2 weeks. * Changes in Appetite or Bowel Habits - Mostly related to anesthesia and pain medication, some patients have reported decreased appetite and/or problems with constipation. These symptoms usually improve over a few weeks. Remembering to take an [id number] stool softener, as directed, will help you to avoid constipation. Call our office and seek emergent treatment if you develop: * Fever or chills * Have a temperature greater than 101 degrees F * Any redness or purulent drainage from your incisions or punctures * Severe abdominal, chest or back pain SKIN IRRITATION: * You may experience some redness and/or swelling in the area where radiation was administered. If any skin irritation occurs, please contact your family physician. You will be receiving a call from the Vascular Surgery Nurse after you are discharged. FOLLOW UP VISIT: It is important for you to keep your follow up appointments with your medical provider. Keep any scheduled doctor appointments. Call [phone] to schedule a follow up appointment if one not already scheduled. Pending Studies at Discharge: No Stand-Alone Forms: [employer], Smoking Cessation Medications and DC Order Prescriptions: New oxycodone-acetaminophen [Percocet] 5-325 mg tablet 1 tab PO Q6H PRN (Reason: pain) Qty: 10 0RF Continued atorvastatin 20 mg tablet 20 mg PO HS lisinopril 20 mg tablet 20 mg PO HS bupropion HCl 100 mg tablet 100 mg PO BID aspirin 81 mg Capsule 81 mg PO QAM melatonin 5 mg Tablet 5 mg PO HS PRN (Reason: Sleep) Discharge Orders: Discharge Order (Routine); Ordered 10/25/22 Ordered By: Branden Francois Admission Data Admit Date/Time: 10/24/22 07:35 Attending Provider: Branden Francois Admit Provider: Branden Francois Primary Care Provider: Justin Kaur Other Providers: Chris Peter ; Frantz George ; Ganga Lynn ; Vinicio Alvarado ; Eric Chavez ; Rakesh Damon ; Kelton Mejia ; Issa Eldridge ; Sherry Allen
== END 2022-10-25 13:44 | disposition home or self-care (01) | DRG 269 ==
LOC: ASU 07:14 → 1E 10:33